=== PATIENT | male | born 1995 | race Caucasian/White ===

== ENCOUNTER 2016-09-07 18:59 | Emergency (ER) | payer SELFPAY ==
[~2016-09-07] VITALS: Ht 180.3 cm; Wt 99.0 kg
[2016-09-07 20:11] LABS: HEMATOCRIT 39.4 % (38.0-50.0); MCH 29.1 PG (29.0-34.0); MCHC 33.5 G/DL (30.0-36.0); MCV 86.8 FL (86-99); MEAN PLAT.VOLUME 10.4 uM^3 (9.0-12.4); PLATELET COUNT 202 K/uL (156-360); RBC DIS.WIDTH-CV 13.5 % (11.8-14.6); RED BLOOD COUNT 4.54 M/uL (4.00-5.50); WHITE BLOOD COUNT 7.5 K/uL (4.1-10.2)
[2016-09-07 20:21] LABS: CHLORIDE 102 mEq/L (99-109); SODIUM 134 mEq/L (136-147)
[2016-09-07 20:23] LABS: GLUCOSE 118 mg/dL (70-99)
[2016-09-07 20:24] LABS: ANION GAP 8 MEQ/L (2-14)
[2016-09-07 20:25] LABS: TOTAL BILIRUBIN 0.6 mg/dL (0.0-1.0)
[2016-09-07 20:26] LABS: ALKALINE PHOSPHATASE 109 IU/L (3-129)
[2016-09-07 20:27] LABS: GFR ESTIMATE (CALCULATED) > 59 mL/min/
[2016-09-07 20:28] LABS: UREA NITROGEN (BUN) 12 mg/dL (9-23)
[2016-09-08] MEDS ORDERED: ZOFRAN ODT4 MG PO (00:03)
[2016-09-08 00:28] VITALS: BP 125/72
[2016-09-08 00:30] LABS: ADD MIUA? YES; BILIRUBIN NEGATIVE; BLOOD NEGATIVE; COLOR DK YELLOW ((YELLOW)); GLUCOSE (STRIP) NEGATIVE; KETONES NEGATIVE; LEUKOCYTES NEGATIVE; NITRITE NEGATIVE; PROTEIN (STRIP) 30; SPECIFIC GRAVITY 1.027 (1.000-1.030)
[2016-09-08 01:46] LABS: AMORPHOUS URATES CRYSTALS 1+; BACTERIA 2+; CASTS NONE SEEN /LPF; CRYSTALS PRESENT; EPITHELIAL CELLS 1+; MUCUS 3+; RED BLOOD CELLS 0-5 /HPF (0-5); UCUL ADDED? NO; WHITE BLOOD CELLS NONE SEEN /HPF (0-5)
== END 2016-09-08 00:32 | disposition home or self-care (01) ==
LOC: RME 18:59 → EME 18:59 → RME 09-08 00:32
DX: B34.9 Viral infection, unspecified (principal); R11.2 Nausea with vomiting, unspecified
CPT/HCPCS: 80053; 81003; 85027; 99281; 99284; J2405; J7030